=== PATIENT | female | born 2000 | race Caucasian/White ===

== ENCOUNTER 2025-02-04 16:08 | Emergency (ER) | payer BC ==
[2025-02-04 17:14] LABS: Absolute Lymphocytes (CBC) 1.5 K/uL (0.7-4.9); Absolute Monocytes 0.5 K/uL (0.1-1.3); Absolute Neutrophil 8.9 K/uL (1.8-8.0); Basophils % 0.3 % (0-1.3); Eosinophils % 0.2 % (0-4.4); Hematocrit 37.8 % (36.0-45.0); Hemoglobin 13.2 g/dL (12.0-15.0); Lymphocytes % 14.1 % (15.3-44.8); MCH 30.7 pg (27.0-35.0); MCV 87.8 fL (80-100); MPV 7.8 fL (7.6-11.3); Monocytes % 4.2 % (3.3-12.3); Neutrophils % 81.2 % (41.7-73.7); Platelets 226 thou/uL (152-406); Red Cell Distribution Width 13.7 % (12.1-15.2)
[2025-02-04 17:27] LABS: Sqamous Epithelial None Seen /HPF (None Seen); Urine Bacteria None Seen /HPF (<20); Urine Bilirubin NEGATIVE (Negative); Urine Blood 3+ (OVER) (Negative); Urine Clarity Extremely Turbid (Clear); Urine Color Dark-Brown (Yellow); Urine Glucose NEGATIVE (Negative); Urine Ketones NEGATIVE (Negative); Urine Micro Reflex YN NO BILL MICROSCOPIC; Urine Mucus 3+ /HPF (None Seen); Urine Nitrite NEGATIVE (Negative); Urine Protein 2+ (Negative); Urine RBC >50 /HPF (None Seen); Urine Urobilinogen Normal (Normal); Urine WBC >50 /HPF (<5); Urine WBC Clump Many /HPF (None Seen); Urine Yeast (Budding) Few /HPF (None Seen); Urine pH 5.5 (5.0-7.0)
[2025-02-04 17:46] LABS: Anion Gap 9.8 mEq/L (5.0-15.0); Potassium 3.8 mEq/L (3.5-5.1)
--- NOTE | 2025-02-04 17:57 | RAD REPORT ---
EXAM: Transvaginal OB HISTORY: VAGINAL BLEEDING COMPARISON: None TECHNIQUE: Multiple grayscale and color Doppler images were obtained in a transvaginal pelvic ultraso und. Spectral analysis of the Doppler waveforms of the ovaries were performed. FINDINGS: UTERUS: There is an intrauterine gestational sac. This contains a yolk sac and pole. [place]-rump length: 3.1 cm which estimates gestational age at 10 week 0 day. A heart rate is detected at 91 bpm. No evidence of subchorionic hemorrhage. No free fluid is seen in the pelvis. RIGHT OVARY: Normal flow without focal mass. LEFT OVARY: Nonvisualized IMPRESSION: Single live intrauterine with estimated age of 10 weeks 0 day. heart rate measured at 91 bpm which is low. Suggest short-term follow-up ultrasound..
--- NOTE | 2025-02-04 18:08 | EDPHYS ---
Physician Documentation [facility] Name: Nataliia Lopez Age: 24 yrs Sex: Female : 2000 Arrival Date: 02/04/2025 Time: 16:08 Bed 15 Private MD: ED Physician David Atkinson HPI: 02/04 17:46 This 24 yrs old Female presents to ER via Ambulatory with complaints of dr5 Abdominal Pain, Vaginal Bleeding, + Preg <12wks, Vomiting. 17:46 The patient presents with abdominal pain right lower quadrant, in the left lower dr5 quadrant. Onset: The symptoms/episode began/occurred 2 day(s) ago. Patient is a 24-year-old female with history of hypothyroidism coming in with 2 days of nausea vomiting and 1 day of vaginal bleeding with clots. Patient reports that she saw her OB 2 days ago and had ultrasound completed that was normal. Patient denies dysuria. Pt is . Historical: - Allergies: 16:21 Pineapple; ll1 - PMHx: 16:21 Hypothyroidism; ll1 - PSHx: 16:21 None; ll1 - Immunization history:: Adult Immunizations up to date. - Infectious Disease History:: Denies. - Social history:: Smoking status: Patient denies any tobacco usage or history of. ROS: 17:46 Constitutional: as per hpi dr5 Exam: 17:46 Constitutional: This is a well developed, well nourished patient who is awake, alert, dr5 and in no acute distress. Head/Face: Normocephalic, atraumatic. ENT: Nares patent. No nasal discharge, no septal abnormalities noted. Tympanic membranes are normal and external auditory canals are clear. Oropharynx with no redness, swelling, or masses, exudates, or evidence of obstruction, uvula midline. Mucous membranes moist. Neck: Trachea midline, no thyromegaly or masses palpated, and no cervical lymphadenopathy. Supple, full range of motion without nuchal rigidity, or vertebral point tenderness. No Meningismus. Chest/axilla: Normal chest wall appearance and motion. Nontender with no deformity. No lesions are appreciated. Cardiovascular: Regular rate and rhythm with a normal S1 and S2. Normal PMI, no JVD. No pulse deficits. Respiratory: Lungs have equal breath sounds bilaterally, clear to auscultation. No rales, rhonchi or wheezes noted. No increased work of breathing, no retractions or nasal flaring. Back: No spinal tenderness. No costovertebral tenderness. Full range of motion. Skin: Warm, dry with normal turgor. Normal color with no rashes, no lesions, and no evidence of cellulitis. MS/ Extremity: Pulses equal, no cyanosis. Neurovascular intact. Full, normal range of motion. Neuro: Awake and alert, GCS 15, oriented to person, place, time, and situation. Cranial nerves II-XII grossly intact. Motor strength 5/5 in all extremities. Sensory grossly intact. Cerebellar exam normal. Normal gait. 17:46 Abdomen/GI: Inspection: abdomen appears normal, Bowel sounds: normal, Palpation: mild abdominal tenderness, in the right lower quadrant and left lower quadrant, Vital Signs: 16:21 BP 130 / 79; Pulse 82; Resp 16; Temp 98.6; Pulse Ox 100% ; Weight 88 kg; Height 5 ft. 4 ll1 in. ; Pain 7/10; 18:30 BP 128 / 78; Pulse 80; Resp 16; Pulse Ox 100% ; db 16:21 Body Mass Index 33.30 (88.00 kg, 162.56 cm) ll1 16:21 Pain Scale: Adult ll1 MDM: 16:17 Medical Screening Exam initiated dr5 18:16 Differential diagnosis: Ectopic , . Threatened miscarriage. Data dr5 reviewed: vital signs, nurses notes, lab test result(s), radiologic studies. I considered the following discharge prescriptions or medication management in the emergency department Medications were administered in the Emergency Department. See MAR. Care significantly affected by the following Social Determinants of Health: Poor access to healthcare and/or lack of insurance, Poor access to transportation, Problems related to employment. Counseling: I had a detailed discussion with the patient and/or guardian regarding the historical points, exam findings, and any diagnostic results supporting the discharge/admit diagnosis, the presence of at least one elevated blood pressure reading (>120/80) during this emergency department visit, lab results, radiology results, the need for outpatient follow up, for definitive care, a family practitioner, an OB/Gyne specialist, to return to the emergency department if symptoms worsen or persist or if there are any questions or concerns that arise at home. ED course: Labs and ultrasound were printed and given to patient. Recommended follow-up in 48 hours with either us or her [facility]. Will cover with Keflex as well as intravaginal Kari medication. All questions answered. Tylenol given in ER. Explained that patient's baby heart tones are low and 48-hour follow-up is necessary. Recommended taking Tylenol every 6 hours as needed.. 02/04 16:17 Order name: Abo/rh Typing; Complete Time: 17:35 [facility] 02/04 16:17 Order name: Basic Metabolic Panel; Complete Time: 18:07 [facility] 02/04 16:17 Order name: CBC with Diff; Complete Time: 17:18 dr5 02/04 16:17 Order name: Test, Urine; Complete Time: 17:24 [facility] 02/04 16:17 Order name: Quantitative Hcg; Complete Time: 18:07 [facility] 02/04 16:55 Order name: UA W/ Microscopic; Complete Time: 17:35 [facility] 02/04 16:17 Order name: Transvaginal OB US; Complete Time: 18:07 [facility] 02/04 16:17 Order name: IV Saline Lock; Complete Time: 17:32 [facility] 02/04 16:17 Order name: Labs collected and sent; Complete Time: 17:32 [facility] 02/04 16:17 Order name: NPO; Complete Time: 17:32 dr5 Administered Medications: 18:30 Drug: Promethazine IM 12.5 mg IM once Route: IM; Site: right deltoid; db 18:49 Follow up: Response: No adverse reaction db 18:40 Drug: Acetaminophen PO 1000 mg PO once Route: PO; db 18:49 Follow up: Response: No adverse reaction db Disposition Summary: 02/04/25 18:07 Discharge Ordered Notes: Location: Home dr5 Condition: Stable dr5 Diagnosis - Threatened dr5 - UTI/ Urinary tract infection, site not specified dr5 Followup: dr5 - With: Emergency Department - When: As needed - Reason: Worsening of condition Followup: dr5 - With: Private Physician - When: 1 - 2 days - Reason: Recheck today's complaints, Continuance of care, Re-evaluation by your physician Discharge Instructions: - Discharge Summary Sheet dr5 - Vaginal Bleeding During , First Trimester dr5 - Urinary Tract Infection, Adult, [id number] dr5 Forms: - Work release form db - Medication Reconciliation Form dr5 - Antibiotic Education dr5 - Patient Portal Instructions dr5 - Leadership Thank You Letter dr5 Prescriptions: - Cephalexin 500 mg Oral Capsule - take 1 capsule ORAL route every 12 hours for 10 days; 20 capsule; Refills: 0, dr5 Product Selection Permitted - Clotrimazole 3 Day 2 % Vaginal cream - insert 1 applicatorful VAGINAL route At bedtime for 3 days; 3 application; dr5 Refills: 0, Product Selection Permitted Signatures: Dispatcher [employer] EDMS David Atkinson MD MD rn Lewis, Lynsay RN RN ll1 Rupa Garcia RN RN db Tawanda Frank, PBX TECHNICIAN-C PBX TECHNICIAN-Cdr5 Corrections: (The following items were deleted from the chart) 16:17 16:17 ABO/RH TYPING+BB.LAB.BRZ ordered. EDMS EDMS 16:17 16:17 BASIC METABOLIC PANEL+C.LAB.BRZ ordered. EDMS EDMS 16:17 16:17 CBC+H.LAB.BRZ ordered. EDMS EDMS 16:17 16:17 Test, Urine+UC.LAB.BRZ ordered. EDMS EDMS 16:17 16:17 QUANTITATIVE HCG+C.LAB.BRZ ordered. EDMS EDMS 16:56 16:56 UA W/ Microscopic+U.LAB.BRZ ordered. EDMS EDMS
--- NOTE | 2025-02-04 18:08 | ER ---
Nurse's Notes [facility] Name: Nataliia Lopez Age: 24 yrs Sex: Female : 2000 Arrival Date: 02/04/2025 Time: 16:08 Bed 15 Private MD: Diagnosis: Threatened ;UTI/ Urinary tract infection, site not specified Presentation: 02/04 16:16 Chief complaint: Patient states: Abdominal pain, N/V, vaginal bleeding with clots for 2 ll1 days. 9 weeks G1, P0. Coronavirus screen: Client denies travel out of the [place] in the last 14 days. At this time, the client does not indicate any symptoms associated with coronavirus-19. Ebola Screen: Patient denies travel to an Ebola-affected area in the 21 days before illness onset. Initial Sepsis Screen: Does the patient meet any 2 criteria? No. Patient's initial sepsis screen is negative. Does the patient have a suspected source of infection? No. Patient's initial sepsis screen is negative. Risk Assessment: Do you want to hurt yourself or someone else? Patient reports no desire to harm self or others. 16:16 Method Of Arrival: Ambulatory ll1 16:16 Acuity: EVAN 3 ll1 16:21 Onset of symptoms was February 03, 2025. 1 Triage Assessment: 16:16 General: Appears uncomfortable, Behavior is calm, cooperative, appropriate for age. ll1 Pain: Complains of pain in pelvis Quality of pain is described as crampy. GI: Reports lower abdominal pain, cramping, nausea, vomiting. : Reports vaginal bleeding that is with clots, moderate flow. Historical: - Allergies: 16:21 Pineapple; ll1 - PMHx: 16:21 Hypothyroidism; ll1 - PSHx: 16:21 None; ll1 - Immunization history:: Adult Immunizations up to date. - Infectious Disease History:: Denies. - Social history:: Smoking status: Patient denies any tobacco usage or history of. Screenin:50 [facility] ED Fall Risk Assessment (Adult) History of falling in the last 3 months, db including since admission No falls in past 3 months (0 pts) Confusion or Disorientation No (0 pts) Intoxicated or Sedated No (0 pts) Impaired Gait No (0 pts) Mobility Assist Device Used No (0 pt) Altered Elimination No (0 pt) Score/Fall Risk Level 0 - 2 = Low Risk Oriented to surroundings, Maintained a safe environment. Abuse screen: Denies threats or abuse. Denies injuries from another. Nutritional screening: No deficits noted. Tuberculosis screening: No symptoms or risk factors identified. Assessment: 17:32 Reassessment: Patient appears in no apparent distress at this time. Patient and/or db family updated on plan of care and expected duration. Pain level reassessed. Patient is alert, oriented x 3, equal unlabored respirations, skin warm/dry/pink. General: Appears in no apparent distress. comfortable, Behavior is calm, cooperative. Neuro: Level of Consciousness is awake, alert, obeys commands, Oriented to person, place, time, situation. 18:22 Reassessment: pt in restroom. db 18:50 Reassessment: Patient appears in no apparent distress at this time. Patient and/or db family updated on plan of care and expected duration. Pain level reassessed. Patient is alert, oriented x 3, equal unlabored respirations, skin warm/dry/pink. 19:03 Reassessment: PATIENT REPORTS PASSED FETUS WHILE USING RESTROOM. FETUS COLLECTED AND db PLACED IN SPECIMEN CUP. SENT TO LAB FOR PATHOLOGY. NOTIFIED DR. ATKINSON. Vital Signs: 16:21 BP 130 / 79; Pulse 82; Resp 16; Temp 98.6; Pulse Ox 100% ; Weight 88 kg; Height 5 ft. 4 ll1 in. ; Pain 7/10; 18:30 BP 128 / 78; Pulse 80; Resp 16; Pulse Ox 100% ; db 16:21 Body Mass Index 33.30 (88.00 kg, 162.56 cm) ll1 16:21 Pain Scale: Adult ll1 ED Course: 16:16 Patient arrived in ED. al6 16:17 Tawanda Frank FNP-C [facility]. dr5 16:17 David Atkinson MD is Attending Physician. dr5 16:17 Triage completed. ll1 16:17 Arm band placed on. ll1 16:49 Rupa Garcia, KATLYN is Primary Nurse. db 17:10 No provider procedures requiring assistance completed. Initial lab(s) drawn, by me, db sent to lab. Inserted saline lock: 20 gauge in right antecubital area, using aseptic technique. Blood collected. Flushed with 10 mL NS. 17:28 Transvaginal OB US In Process Unspecified. EDMS 18:50 Patient has correct armband on for positive identification. Bed in low position. Call db light in reach. Side rails up X 1. Provided Education on: discharge and followup. Pulse ox on. NIBP on. Warm blanket given. Pillow given. 18:50 IV discontinued, intact, bleeding controlled, No redness/swelling at site. db 18:53 Primary Nurse role handed off by Rupa Garcia RN 18:53 PHCP role handed off by Tawanda Frank FNP-C hb Administered Medications: 18:30 Drug: Promethazine IM 12.5 mg IM once Route: IM; Site: right deltoid; db 18:49 Follow up: Response: No adverse reaction db 18:40 Drug: Acetaminophen PO 1000 mg PO once Route: PO; db 18:49 Follow up: Response: No adverse reaction db Medication: 18:50 VIS not applicable for this client. db Outcome: 18:07 Discharge ordered by MD. dr5 18:50 Discharged to home ambulatory, with family, db 18:50 Condition: stable 18:50 Discharge instructions given to patient, family, Instructed on discharge instructions, follow up and referral plans. Prescriptions given X 2, 18:51 Patient left the ED. db 19:24 Patient left the ED. rg5 Signatures: Dispatcher [employer] EDMS Angelic Taveras RN KATLYN Migdalia Velez RN RN ll1 Rupa Garcia, RN KATLYN db Irving Ryder RN RN rg5 Tawanda Frank FNP-C FNP-[facility] Susi Rm Corrections: (The following items were deleted from the chart) 16:21 16:16 Chief complaint: Patient states: Abdominal pain, N/V, vaginal bleeding with ll1 clots. 9 weeks ll1
[2025-02-04] MEDS ORDERED: ACETAMINOPHEN 500 MG TAB ONE (18:10)
[2025-02-04] MEDS ORDERED: PROMETHAZINE INJ 25 MG/ML AMP IM ONE (18:31)
[2025-02-04 19:05] VITALS: TEMP 98.6; O2SAT 100
[2025-02-04 19:07] VITALS: BP 128/78
== END 2025-02-04 19:24 | disposition home or self-care (01) ==
LOC: ER 16:08
DX: O20.0 Threatened abortion (principal); O23.41 Unspecified infection of urinary tract in pregnancy, first trimester; N39.0 Urinary tract infection, site not specified; Z3A.10 10 weeks gestation of pregnancy
CPT/HCPCS: 85025; 81001; 80048; 36415; 86900; 81025; 86901; 88300; 84702; 76817; 96372; 99284; J2550